=== PATIENT | female | born 1930 | race Caucasian/White ===

== ENCOUNTER 2016-08-24 18:22 | Emergency (ER) | payer MEDICARE, OTHER ==
[~2016-08-24] VITALS: Ht 152.4 cm; Wt 122.5 kg
[~2016-08-24 18:22] MED LIST: ACETAMINOPHEN325 M1 PO; ALLOPURINOL100 MG PO; AMLODIPINE BESYL5 MG PO; ASPIRIN81 MG PO; C COMPLEX1000 MG PO; CALCITRIOL0.25 MCG PO; CARDURA1 MG PO; CARVEDILOL12.5 MG PO; CIPROFLOXACIN250 MG PO; CLONIDINE HCL0.1 MG PO; COLACE100 MG PO; COZAAR50 MG PO; FERROUS SULFAT325 MG PO; FLAGYL250 MG PO; FLORANEX GRANU1 EACH PO; FUROSEMIDE80 MG PO; GABAPENTIN100 MG PO; LASIX40 MG PO; LEVOTHYROXINE175 MCG PO; LISINOPRIL40 MG PO; LISINOPRIL5 MG PO; MELATONIN1 MG PO; NEPHRO-VITE RX1 TAB PO; NIFEDICAL XL60 MG PO; NITROGLYCERIN0.4 MG SL; OMEPRAZOLE20 MG PO; PERCOCET 5-3251 EACH PO; PLAVIX75 MG PO; REGLAN10 MG PO; RENVELA800 MG PO; SIMVASTATIN10 MG PO; TRAMADOL HCL50 MG PO; TUMS ULTRA400 MG PO; VANCOCIN HCL250 MG PO; VITAMIN D31000 UNI1 PO; VITAMIN E600 UNIT PO; ZOCOR10 MG PO; ZOFRAN4 MG PO
--- NOTE | 2016-08-25 07:31 | EKG ---
[facility] [address] [facility] [place] [address] Signed Normal sinus rhythm with sinus arrhythmia Nonspecific intraventricular block Cannot rule out Anterior infarct , age undetermined T wave abnormality, consider lateral ischemia Abnormal ECG When compared with ECG of 14-JUL-2016 14:59, QRS duration has increased Minimal criteria for Inferior infarct are no longer present T wave inversion no longer evident in Inferior leads T wave inversion less evident in Lateral leads Confirmed by ELSY LOPEZ MD ([id number]) on 08/25/2016 7:31:39 AM Electronically Signed By: ELSY LOPZE MD 08/25/16 0731 PATIENT NAME: NAIDA KIMBALL Electrocardiogram DATE OF : 32 PHYSICIAN: ELSY LOPEZ MD REPORT #: [id number] REPORT IS CONFIDENTIAL AND NOT TO BE RELEASED WITHOUT AUTHORIZATION
== END 2016-08-24 20:35 | disposition short-term general hospital (02) ==
LOC: ED 18:22
DX: E87.5 Hyperkalemia (principal); I25.10 Atherosclerotic heart disease of native coronary artery without angina pectoris; D64.9 Anemia, unspecified; I13.2 Hypertensive heart and chronic kidney disease with heart failure and with stage 5 chronic kidney disease, or end stage renal disease; I50.9 Heart failure, unspecified; N18.6 End stage renal disease; Z95.1 Presence of aortocoronary bypass graft; Z90.49 Acquired absence of other specified parts of digestive tract; Z90.710 Acquired absence of both cervix and uterus; Z88.2 Allergy status to sulfonamides; Z88.8 Allergy status to other drugs, medicaments and biological substances; Z79.82 Long term (current) use of aspirin; Z79.899 Other long term (current) drug therapy
CPT/HCPCS: 80053; 85025; 93005; 93010; 96374; 96375; 99285; J0610

== ENCOUNTER 2016-09-19 02:34 | Emergency (ER) | payer MEDICARE, OTHER ==
[~2016-09-19] VITALS: Ht 152.4 cm; Wt 99.8 kg
[2016-09-19] MEDS ORDERED: HYDROCODON-ACE1 EA10 PO (02:45)
[2016-09-19] MEDS ORDERED: FLORANEX GRANU1 EACH PO (02:49)
== END 2016-09-19 05:26 | disposition home or self-care (01) ==
LOC: ED 02:34
DX: S09.90XA Unspecified injury of head, initial encounter (principal); T14.8 Other injury of unspecified body region; S49.92XA Unspecified injury of left shoulder and upper arm, initial encounter; S49.91XA Unspecified injury of right shoulder and upper arm, initial encounter; I13.2 Hypertensive heart and chronic kidney disease with heart failure and with stage 5 chronic kidney disease, or end stage renal disease; E11.22 Type 2 diabetes mellitus with diabetic chronic kidney disease; N18.6 End stage renal disease; I50.9 Heart failure, unspecified; I25.10 Atherosclerotic heart disease of native coronary artery without angina pectoris; Z99.2 Dependence on renal dialysis; Z88.2 Allergy status to sulfonamides; Z91.018 Allergy to other foods; Z79.82 Long term (current) use of aspirin; Z79.899 Other long term (current) drug therapy; W19.XXXA Unspecified fall, initial encounter
CPT/HCPCS: 70450; 73030; 99284

== ENCOUNTER 2016-11-07 00:11 | Emergency (ER) | payer MEDICARE, OTHER ==
[~2016-11-07] VITALS: Ht 152.4 cm; Wt 99.8 kg
[~2016-11-07 00:11] MED LIST changes: +HYDROCODON-ACE1 EA10 PO
[2016-11-07] MEDS ORDERED: CALCIUM CARB 51 EACH PO (01:04)
[2016-11-07] MEDS ORDERED: FLORANEX GRANU1 EACH PO (01:06)
[2016-11-07] MEDS ORDERED: OMEPRAZOLE20 MG PO (01:08)
[2016-11-07] MEDS ORDERED: GAVILAX17 GM PO (01:09)
[2016-11-07] MEDS ORDERED: VITAMIN B COMP1 EACH PO (01:09)
--- NOTE | 2016-11-08 21:47 | EKG ---
[facility] [address] [facility] [place] [address] Signed Normal sinus rhythm T wave abnormality, consider lateral ischemia , old Abnormal ECG When compared with ECG of 24-AUG-2016 18:34, QRS duration has decreased Confirmed by INDU BETH MD ([id number]) on 11/08/2016 9:46:52 PM Electronically Signed By: INDU BETH MD 11/08/16 2147 PATIENT NAME: NAIDA KIMBALL Electrocardiogram DATE OF : 32 PHYSICIAN: INDU BETH MD REPORT #: [id number] REPORT IS CONFIDENTIAL AND NOT TO BE RELEASED WITHOUT AUTHORIZATION
== END 2016-11-07 04:59 | disposition home or self-care (01) ==
LOC: ED 00:11
DX: I13.2 Hypertensive heart and chronic kidney disease with heart failure and with stage 5 chronic kidney disease, or end stage renal disease (principal); I50.9 Heart failure, unspecified; N18.6 End stage renal disease; Z99.2 Dependence on renal dialysis; I25.810 Atherosclerosis of coronary artery bypass graft(s) without angina pectoris; Z95.3 Presence of xenogenic heart valve; Z88.2 Allergy status to sulfonamides; Z91.018 Allergy to other foods; Z88.8 Allergy status to other drugs, medicaments and biological substances; Z79.82 Long term (current) use of aspirin; Z79.899 Other long term (current) drug therapy
CPT/HCPCS: 71010; 80053; 83880; 84484; 85025; 93005; 93010; 94640; 96374; 99284

== ENCOUNTER 2017-01-05 22:36 | Emergency (ER) | payer MEDICARE, OTHER ==
[~2017-01-05] VITALS: Ht 152.4 cm; Wt 99.8 kg
[~2017-01-05 22:36] MED LIST changes: +CALCIUM CARB 51 EACH PO; +GAVILAX17 GM PO; +VITAMIN B COMP1 EACH PO
== END 2017-01-06 00:10 | disposition home or self-care (01) ==
LOC: ED 22:36
DX: S20.211A Contusion of right front wall of thorax, initial encounter (principal); I13.2 Hypertensive heart and chronic kidney disease with heart failure and with stage 5 chronic kidney disease, or end stage renal disease; N18.6 End stage renal disease; I50.9 Heart failure, unspecified; Z99.2 Dependence on renal dialysis; W01.198A Fall on same level from slipping, tripping and stumbling with subsequent striking against other object, initial encounter; Z88.2 Allergy status to sulfonamides; Z88.8 Allergy status to other drugs, medicaments and biological substances; Z91.018 Allergy to other foods; Z90.49 Acquired absence of other specified parts of digestive tract; Z90.710 Acquired absence of both cervix and uterus; Z79.899 Other long term (current) drug therapy; Z79.82 Long term (current) use of aspirin
CPT/HCPCS: 71101; 99283

== ENCOUNTER 2017-02-27 05:58 | Emergency (ER) | payer MEDICARE, OTHER ==
[~2017-02-27] VITALS: Ht 152.4 cm; Wt 136.1 kg
--- NOTE | 2017-02-28 06:36 | EKG ---
[facility] [address] [facility] [place] [address] Signed Sinus tachycardia with 2nd degree AV block with 2:1 AV conduction Left bundle branch block Abnormal ECG When compared with ECG of 07-NOV-2016 00:18, Sinus rhythm is now with 2nd degree AV block Left bundle branch block is now present Confirmed by ELSY LOPEZ MD ([id number]) on 02/28/2017 6:36:30 AM Electronically Signed By: ELSY LOPEZ MD 02/28/17 0636 PATIENT NAME: NAIDA KIMBALL Electrocardiogram DATE OF : 32 PHYSICIAN: ELSY LOPEZ MD REPORT #: [id number] REPORT IS CONFIDENTIAL AND NOT TO BE RELEASED WITHOUT AUTHORIZATION
== END 2017-02-27 08:03 | disposition home or self-care (01) ==
LOC: ED 05:58
DX: R07.2 Precordial pain (principal); I13.0 Hypertensive heart and chronic kidney disease with heart failure and stage 1 through stage 4 chronic kidney disease, or unspecified chronic kidney disease; N18.6 End stage renal disease; I50.9 Heart failure, unspecified; Z99.2 Dependence on renal dialysis; I25.10 Atherosclerotic heart disease of native coronary artery without angina pectoris; Z95.1 Presence of aortocoronary bypass graft; Z90.710 Acquired absence of both cervix and uterus; Z90.49 Acquired absence of other specified parts of digestive tract; Z95.2 Presence of prosthetic heart valve; Z88.2 Allergy status to sulfonamides; Z88.8 Allergy status to other drugs, medicaments and biological substances; Z91.018 Allergy to other foods; Z91.041 Radiographic dye allergy status; Z79.82 Long term (current) use of aspirin; Z79.899 Other long term (current) drug therapy
CPT/HCPCS: 71045; 80053; 84484; 85025; 93005; 93010; 99284

== ENCOUNTER 2017-03-12 22:18 | Emergency (ER) | payer MEDICARE, OTHER ==
[~2017-03-12] VITALS: Ht 152.4 cm; Wt 117.9 kg
--- NOTE | 2017-03-13 07:13 | EKG ---
[facility] [address] [facility] [place] [address] Signed Atrial fibrillation Left bundle branch block Abnormal ECG When compared with ECG of 27-FEB-2017 06:02, Atrial fibrillation has replaced Sinus rhythm T wave inversion now evident in Inferior leads T wave inversion more evident in Lateral leads Confirmed by ELSY LOPEZ MD ([id number]) on 03/13/2017 7:13:28 AM Electronically Signed By: ELSY LOPEZ MD 03/13/17 0713 PATIENT NAME: JIGARNAIDA E Electrocardiogram DATE OF : 32 PHYSICIAN: ELSY LOPEZ MD REPORT #: [id number] REPORT IS CONFIDENTIAL AND NOT TO BE RELEASED WITHOUT AUTHORIZATION
== END 2017-03-13 00:09 | disposition home or self-care (01) ==
LOC: ED 22:18
DX: I13.2 Hypertensive heart and chronic kidney disease with heart failure and with stage 5 chronic kidney disease, or end stage renal disease (principal); I50.9 Heart failure, unspecified; N18.6 End stage renal disease; E87.5 Hyperkalemia; Z99.2 Dependence on renal dialysis; Z95.1 Presence of aortocoronary bypass graft; Z90.49 Acquired absence of other specified parts of digestive tract; Z90.710 Acquired absence of both cervix and uterus; Z98.890 Other specified postprocedural states; Z88.2 Allergy status to sulfonamides; Z88.8 Allergy status to other drugs, medicaments and biological substances; Z91.041 Radiographic dye allergy status; Z91.018 Allergy to other foods; Z79.899 Other long term (current) drug therapy
CPT/HCPCS: 71045; 80053; 83880; 84484; 85025; 93005; 93010; 94640; 99283

== ENCOUNTER 2017-03-27 16:49 | Emergency (ER) | payer MEDICARE, OTHER ==
[~2017-03-27] VITALS: Ht 152.4 cm; Wt 117.9 kg
--- NOTE | 2017-03-28 05:00 | EKG ---
[facility] [address] [facility] [place] [address] Signed Sinus rhythm with 1st degree AV block Left bundle branch block Abnormal ECG When compared with ECG of 12-MAR-2017 22:38, Sinus rhythm has replaced Atrial fibrillation T wave inversion no longer evident in Inferior leads T wave inversion less evident in Lateral leads Confirmed by ELSY LOPEZ MD ([id number]) on 03/28/2017 5:00:40 AM Electronically Signed By: ELSY LOPEZ MD 03/28/17 0500 PATIENT NAME: NAIDA KIMBALL Electrocardiogram DATE OF : 32 PHYSICIAN: ELSY LOPEZ MD REPORT #: [id number] REPORT IS CONFIDENTIAL AND NOT TO BE RELEASED WITHOUT AUTHORIZATION
== END 2017-03-27 20:25 | disposition home or self-care (01) ==
LOC: ED 16:49
DX: J06.9 Acute upper respiratory infection, unspecified (principal); I13.0 Hypertensive heart and chronic kidney disease with heart failure and stage 1 through stage 4 chronic kidney disease, or unspecified chronic kidney disease; I50.9 Heart failure, unspecified; N18.6 End stage renal disease; Z99.2 Dependence on renal dialysis; Z95.1 Presence of aortocoronary bypass graft; Z91.018 Allergy to other foods; Z88.8 Allergy status to other drugs, medicaments and biological substances; Z91.041 Radiographic dye allergy status; Z79.82 Long term (current) use of aspirin; Z79.899 Other long term (current) drug therapy
CPT/HCPCS: 71045; 80053; 83735; 83880; 84484; 85025; 87502; 93005; 93010; 94640; 99284

== ENCOUNTER 2017-04-02 17:08 | Emergency (ER) | payer MEDICARE, OTHER ==
[~2017-04-02] VITALS: Ht 152.4 cm; Wt 117.9 kg
[2017-04-02] MEDS ORDERED: TAMIFLU75 MG PO (18:28)
[2017-04-02] MEDS ORDERED: METHYLPREDNISOLO4 M1 PO (18:29)
--- NOTE | 2017-04-03 14:56 | EKG ---
[facility] [address] [facility] [place] [address] Signed Sinus rhythm with first degree AV block with premature complexes Left bundle branch block Abnormal ECG When compared with ECG of 27-MAR-2017 20:14, Atrial fibrillation has replaced Sinus rhythm Confirmed by INDU BETH MD ([id number]) on 04/03/2017 2:56:33 PM Electronically Signed By: INDU BETH MD 04/03/17 1456 PATIENT NAME: NAIDA KIMBALL Electrocardiogram DATE OF : 32 PHYSICIAN: INDU BETH MD REPORT #: [id number] REPORT IS CONFIDENTIAL AND NOT TO BE RELEASED WITHOUT AUTHORIZATION
== END 2017-04-02 19:00 | disposition home or self-care (01) ==
LOC: ED 17:08
DX: J44.1 Chronic obstructive pulmonary disease with (acute) exacerbation (principal); J10.1 Influenza due to other identified influenza virus with other respiratory manifestations; I13.2 Hypertensive heart and chronic kidney disease with heart failure and with stage 5 chronic kidney disease, or end stage renal disease; I50.9 Heart failure, unspecified; N18.6 End stage renal disease; I25.10 Atherosclerotic heart disease of native coronary artery without angina pectoris; Z88.2 Allergy status to sulfonamides; Z88.8 Allergy status to other drugs, medicaments and biological substances; Z91.018 Allergy to other foods; Z91.041 Radiographic dye allergy status; Z79.899 Other long term (current) drug therapy; Z79.82 Long term (current) use of aspirin
CPT/HCPCS: 71045; 80048; 84484; 85025; 87502; 93005; 93010; 94640; 96374; 99283; J2930

== ENCOUNTER 2017-07-09 15:56 | Emergency (ER) | payer MEDICARE, OTHER ==
[~2017-07-09] VITALS: Ht 152.4 cm; Wt 117.9 kg
[~2017-07-09 15:56] MED LIST changes: +METHYLPREDNISOLO4 M1 PO; +TAMIFLU75 MG PO
[2017-07-09] MEDS ORDERED: ZITHROMAX250 MG PO (17:04)
[2017-07-09] MEDS ORDERED: METHYLPREDNISOLO4 M1 PO (17:04)
== END 2017-07-09 17:20 | disposition home or self-care (01) ==
LOC: ED 15:56
DX: J44.9 Chronic obstructive pulmonary disease, unspecified (principal); I12.0 Hypertensive chronic kidney disease with stage 5 chronic kidney disease or end stage renal disease; N18.6 End stage renal disease; Z91.018 Allergy to other foods; Z88.2 Allergy status to sulfonamides; Z88.8 Allergy status to other drugs, medicaments and biological substances; Z91.041 Radiographic dye allergy status; Z99.2 Dependence on renal dialysis; Z79.82 Long term (current) use of aspirin; Z79.899 Other long term (current) drug therapy
CPT/HCPCS: 71045; 80048; 85025; 94640; 96374; 99283; J2930

== ENCOUNTER 2017-10-05 12:59 | Emergency (ER) | payer MEDICARE, OTHER ==
[~2017-10-05] VITALS: Ht 152.4 cm; Wt 136.1 kg
[~2017-10-05 12:59] MED LIST changes: +NYSTATIN1 EAC1 PO; +ZITHROMAX250 MG PO
== END 2017-10-05 17:00 | disposition home or self-care (01) ==
LOC: ED 12:59
DX: R41.0 Disorientation, unspecified (principal); R40.0 Somnolence; I13.2 Hypertensive heart and chronic kidney disease with heart failure and with stage 5 chronic kidney disease, or end stage renal disease; N18.6 End stage renal disease; I50.9 Heart failure, unspecified; Z88.2 Allergy status to sulfonamides; Z88.8 Allergy status to other drugs, medicaments and biological substances; Z91.041 Radiographic dye allergy status; Z91.018 Allergy to other foods; Z79.82 Long term (current) use of aspirin; Z79.899 Other long term (current) drug therapy
CPT/HCPCS: 70450; 80053; 85025; 99284

== ENCOUNTER 2017-10-06 07:43 | Emergency (ER) | payer MEDICARE, OTHER ==
[~2017-10-06] VITALS: Ht 152.4 cm; Wt 136.1 kg
--- NOTE | 2017-10-07 14:43 | EKG ---
[facility] [address] [facility] [place] [address] Signed Sinus bradycardia Incomplete left bundle branch block T wave abnormality, consider lateral ischemia Abnormal ECG When compared with ECG of 26-SEP-2017 22:15, Sinus rhythm has replaced Idioventricular rhythm Vent. rate has increased BY 24 BPM Confirmed by ANUSHA EWBB DO ([id number]) on 10/07/2017 2:43:10 PM Electronically Signed By: ANUSHA WEBB DO 10/07/17 1443 PATIENT NAME: EMI KIMBALLSTEPHY WARRENILY Electrocardiogram DATE OF : 32 PHYSICIAN: ANUSHA WEBB DO REPORT #: [id number] REPORT IS CONFIDENTIAL AND NOT TO BE RELEASED WITHOUT AUTHORIZATION
== END 2017-10-06 10:10 | disposition home or self-care (01) ==
LOC: ED 07:43
DX: R53.83 Other fatigue (principal); I13.2 Hypertensive heart and chronic kidney disease with heart failure and with stage 5 chronic kidney disease, or end stage renal disease; N18.6 End stage renal disease; I50.9 Heart failure, unspecified; Z99.2 Dependence on renal dialysis; Z88.2 Allergy status to sulfonamides; Z88.8 Allergy status to other drugs, medicaments and biological substances; Z91.041 Radiographic dye allergy status; Z91.018 Allergy to other foods; Z79.899 Other long term (current) drug therapy; Z79.82 Long term (current) use of aspirin
CPT/HCPCS: 36415; 80053; 84484; 93005; 93010; 99285

== ENCOUNTER 2020-05-02 09:17 | Emergency (ER) | payer MEDICARE, OTHER ==
[~2020-05-02] VITALS: Ht 152.4 cm; Wt 113.4 kg
[~2020-05-02 09:17] MED LIST changes: +PREDNISONE20 MG PO; +TESSALON PERLE100 MG PO
== END 2020-05-02 10:18 | disposition home or self-care (01) ==
LOC: ED 09:17
DX: S40.812A Abrasion of left upper arm, initial encounter (principal); X58.XXXA Exposure to other specified factors, initial encounter; I13.2 Hypertensive heart and chronic kidney disease with heart failure and with stage 5 chronic kidney disease, or end stage renal disease; I25.10 Atherosclerotic heart disease of native coronary artery without angina pectoris; D64.9 Anemia, unspecified; N18.6 End stage renal disease; Z99.2 Dependence on renal dialysis; G47.30 Sleep apnea, unspecified; Z88.2 Allergy status to sulfonamides; Z88.8 Allergy status to other drugs, medicaments and biological substances; Z91.018 Allergy to other foods; Z79.899 Other long term (current) drug therapy; Z79.52 Long term (current) use of systemic steroids; Z79.82 Long term (current) use of aspirin
CPT/HCPCS: 94640; 99285-25

== ENCOUNTER 2020-05-19 11:02 | Emergency (ER) | payer MEDICARE, OTHER ==
[~2020-05-19] VITALS: Ht 152.4 cm; Wt 105.7 kg
[2020-05-19] MEDS ORDERED: ONDANSETRON ODT8 MG PO (15:12)
--- NOTE | 2020-05-21 13:44 | EKG ---
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
== END 2020-05-19 16:11 | disposition home or self-care (01) ==
LOC: ED 11:02
DX: I13.2 Hypertensive heart and chronic kidney disease with heart failure and with stage 5 chronic kidney disease, or end stage renal disease (principal); N18.6 End stage renal disease; I50.9 Heart failure, unspecified; Z99.2 Dependence on renal dialysis; I25.10 Atherosclerotic heart disease of native coronary artery without angina pectoris; R06.00 Dyspnea, unspecified; G47.30 Sleep apnea, unspecified; Z88.2 Allergy status to sulfonamides; Z88.8 Allergy status to other drugs, medicaments and biological substances; Z91.018 Allergy to other foods; Z91.041 Radiographic dye allergy status; Z79.899 Other long term (current) drug therapy; Z79.82 Long term (current) use of aspirin
CPT/HCPCS: 71045; 80053; 83880; 84484; 85025; 93005; 93010; 99285-25